=== PATIENT | female | born 2000 | race Caucasian/White ===

== ENCOUNTER 2025-01-24 20:29 | Emergency (ER) | payer OTHER, SELFPAY ==
[2025-01-24 21:00] VITALS: BP 109/61; PULSE 87; RESP 18; TEMP 36.4; O2SAT 100; BMI 38.1
--- NOTE | 2025-01-24 21:01 | ED.GENADULT ---
HPI - General Adult General Chief complaint: Fall Stated complaint: head injury from fall; Time Seen by Provider: 01/25/25 00:43 Source: patient, RN notes reviewed and old records reviewed Mode of arrival: ambulatory Limitations: no limitations History of Present Illness ED Provider: Rock HICKS narrative: 24-year-old female presents for evaluation after slipping and hitting her head. Patient reports that she was getting herself into the shower she reports slipping on 1 of her children's toys and struck the right side of her head on the side of the tub she believes she lost consciousness for several minutes before her found her on the ground she complains of a dull right-sided headache but no other complaints pain She denies any neck pain, chest pain, abdominal pain, nausea vomiting. The patient reports that she was about 10 weeks followed by [facility] she was and reports that she had a confirmatory ultrasound 3 days ago with a heart rate 170bpm Related Data Allergies Allergy/AdvReac Type Severity Reaction Status Date / Time No Known Allergies Allergy Verified 01/24/25 21:02 Review of Systems Constitutional: Constitutional: Denies body ache(s), Denies chills, Denies fever(s), Denies frequent falls and Reports headache(s) Eyes: Eyes: Denies blurry vision ENT: Denies dysphagia, Denies vertigo, Denies dizziness and Reports headache(s) Cardiovascular: Cardiovascular: Denies chest pain, Denies chest pain at rest, Reports syncope and Denies dyspnea Respiratory: Respiratory: Denies cough and Denies dyspnea Gastrointestinal: Gastrointestinal: Denies abdominal pain, Denies dysphagia, Denies nausea and Denies vomiting Genitourinary: Genitourinary: Denies hematuria Musculoskeletal: Musculoskeletal: Denies back pain Integumentary/Breasts: Skin/Breast: Denies rash Neurologic: Denies vertigo, Denies dizziness, Reports syncope, Denies frequent falls and Reports headache(s) Psychiatric: Psychiatric: Denies anxiety PMF Social History Social History Advance Directives: No Advance Directives Information Provided: No Physical Exam ED Vital Signs: Vital Signs - 24 hr 01/24/25 21:00 01/24/25 22:54 01/25/25 00:33 Temperature 97.6 F 98.2 F 97.8 F Pulse Rate 87 68 75 Respiratory Rate 18 18 16 Blood Pressure 109/61 91/48 L 95/56 L Pulse Oximetry 100 99 99 Oxygen Delivery Method Room Air Room Air Room Air 01/25/25 02:21 Temperature 98.2 F Pulse Rate 76 Respiratory Rate 16 Blood Pressure 104/55 L Pulse Oximetry 100 Oxygen Delivery Method Room Air BMI result Body Mass Index 38.1 Const General: healthy appearing, comfortable, no acute distress, alert and awake Nutritional Appearance: well nourished Orientation/consciousness: patient oriented x3 HENMT Other: small cutaneous hematoma to the right temporal region. No open wounds or lacerations, no other evidence of facial trauma. Periorbital region without ecchymosis, no step-offs or deformities, no tenderness. No tenderness over the maxillary region or zygomatic arch on right Ears: TM's normal bilaterally and EAC's normal Throat: Yes posterior oropharynx normal Eyes Eyelids: Yes eyelids normal Conjunctivae: conjunctivae normal Sclerae: sclerae normal Corneas: corneas normal Pupils: Equal, round and reactive pupils present EOM: EOMs intact bilaterally Neck Neck: Yes full ROM Resp Effort & Inspection: normal respiratory effort, able to speak in complete sentences, no audible wheezes and not labored Auscultation: clear to auscultation bilaterally Cardio Rate: regular rate Rhythm: regular rhythm GI Inspection: No distended Palpation (GI): Soft to palpation, not firm, nontender, no guarding and not rigid Back/Spine/Pelvis Other: no C-spine tenderness Skin General skin exam: elasticity normal Neuro General: patient oriented x3 Cranial nerves: Yes CN's II-XII intact bilaterally, Yes Equal, round and reactive pupils present and Yes Bilaterally intact EOM present Cognition (Neuro): normal cognition Extrem Other: Moving all extremities well without any obvious deformities Course Course Course Narrative: RME performed by Suzette Lombardo PA-C. Patient is a 24 year old assigned female at presenting to the emergency department with right sided head pain and abdominal pain after a fall. Patient states she was showering when she slipped on a toy and hit her head and abdomen. Patient states that she is currently . Detailed physical exam and review of systems are deferred to the director title. Patient placed back in the waiting room pending room availability. Reevaluation(s) Reevaluation #1: I discussed with Dr Garcia at [facility] given the patient follows with them and is currently . he recommends no additional testing. Since we medically clear the patient from the head injury standpoint, he sees no further workup indicated for the as the patient has no abdominal pain, vaginal bleeding or discharge, and the heart tones were 170 beats per minute Time: 02:58 Medical Decision Making Medical Decision Making [facility] Narrative: 24-year-old female presents for evaluation after falling and striking her head. She reports a loss of consciousness and reports that she was about 10 weeks , . the patient reports a loss of consciousness, and therefore per [place] CT head rules, the patient does not require CT scan of the head as she rules out for all other criteria. She was neurologically intact, GCS of 15, she has no focal neurologic deficits. No open wounds, no seizure after the incident. The patient has no abdominal pain, no vaginal bleeding or discharge, a bedside ultrasound was performed showing a heart rate of 168 beats per minute. Differential Diagnosis Differential Diagnoses: The differential diagnosis associated with the presentation includes Head injury Syncope TBI less likely Lab Data [facility] Lab Attestation statement: I reviewed the patient's lab results. no leukocytosis, the patient has a mild anemia, no significant electrolyte abnormalities warranting intervention. the patient's carbon dioxide level was low at 17 and I suspect this is due to her anxiety and hyperventilating 01/25/25 01:53 01/25/25 01:53 Labs: Lab Results 01/25/25 Range/Units 01:53 WBC 8.6 (4.8-10.8) X10*3/uL RBC 3.96 L (4.20-5.50) X10*6/uL Hgb 11.4 L (12.0-16.0) g/dl Hct 31.7 L (37.0-47.0) % MCV 80.1 (80.0-98.0) fL MCH 28.8 (27.0-33.0) pg MCHC 36.0 H (31.0-35.0) g/dl RDW 12.8 (11.0-16.0) % Plt Count 233 (160-400) X10*3/uL MPV 10.8 (9.4-12.3) fL Immature Gran % (Auto) 0.4 (0.0-0.4) % Neut % (Auto) 64.6 (45-73) % Lymph % (Auto) 28.2 (20-40) % [place] % (Auto) 4.7 (2-11) % Eos % (Auto) 1.9 (0-4) % Baso % (Auto) 0.2 (0-2) % Lymph # (Auto) 2.4 (1.2-4.9) X10*3/uL [place] # (Auto) 0.4 (0.1-1.2) X10*3/uL Eos # (Auto) 0.2 (0.0-0.4) X10*3/uL Baso # (Auto) 0.0 (0.0-0.2) X10*3/uL Abs Immat Gran (auto) 0.03 (0.00-0.03) X10*3/uL Absolute Neuts (auto) 5.5 (2.0-8.3) x10*3/uL Absolute Nucleated RBC 0.000 (0.0-0.012) X10*3/uL Nucleated RBC % (auto) 0.0 (0.0-0.2) /100WBC Sodium 136 (135-145) mmol/L Potassium 3.3 (3.3-5.1) mmol/L Chloride 109 H (96-108) mmol/L Carbon Dioxide 17 L (22-29) mmol/L Anion Gap 13 (12-20) BUN 5 L (9-16) mg/dL Creatinine 0.60 (0.5-1.4) mg/dL Estim Creat Clear Calc 150.1 Estimated GFR > 60 Random Glucose 104 (60-115) mg/dL Calcium 8.9 (8.4-10.2) mg/dL Total Bilirubin 0.4 (0.0-1.0) mg/dL AST 12 (5-31) U/L ALT 16 (0-31) U/L Alkaline Phosphatase 76 (39-117) U/L Troponin I High Sens < 2.7 (<3.5-17.0) ng/L Total Protein 6.8 (6.5-8.0) g/dL Albumin 3.6 (3.5-5.0) g/dL Lipase 11 (8-78) U/L Beta HCG, Quant [id number] mIU/mL Urine Color Yellow Urine Appearance Clear Urine pH 6.5 (5.0-9.0) Ur Specific Phelps 1.015 (1.005-1.025) Urine Protein Negative (Neg-Trace) mg/dL Urine Glucose (UA) Negative (Negative) mg/dL Urine Ketones Trace (Negative) mg/dL Urine Blood Negative (Negative) Urine Nitrite Negative (Negative) Ur Leukocyte Esterase Negative (Negative) Urine RBC 0-2 (0-2) /HPF Urine WBC 0-5 (0-5) /HPF Ur Squamous Epith Cells 0-2 (0-2) /HPF Urine Bacteria None Seen (None Seen) Hyaline Casts 0-2 (0-2) /LPF Blood Type AB Positive Discharge Plan Discharge Clinical Impression: , Minor closed head injury Patient Disposition: Home, Self-Care Instructions: Head Injury (ED), (ED) Additional Instructions: your workup in the ER today was reassuring. You may use Tylenol for any further headaches or pain. Your heart rate today was 170 which is within the normal range. Follow-up with [facility], return for new or worsening symptoms, especially if you develop severe abdominal pain, vaginal bleeding or discharge Print Language: Pashto
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
--- OUTSIDE RECORDS SUMMARY | 2025-01-24 21:51 | XMS_ITS | Encounter Summary ---
Author Organization [facility] Address [address] [place] [id number] Phone Care Team Providers Care Mobile Product Manager Name Role Phone Yajaira King MD Primary Care Provider [phone] Reason for Visit * Reason Comments Med Refill Encounter Details Date Type Department Care Team (Late st Contact Info) Description 07/08/2020 Refill [facility] [place] [address] [place], [place] [id number] Carol Hammonds MD Anxiety and depression Social History Tobacco Use Types Packs/Day Years Used Date Smoking Tobacco: Never Assessed Hunger/Food Answer Date Recorded No 08/22/2019 Stable Housing Answer Date Recorded No 10/24/2019 Transportation Concerns Answer Date Rec orded No 08/22/2019 Hazards in Home Answer Date Recorded No 08/22/2019 Financing Utilities Answer Date Recorde d No 08/22/2019 Safety at Home Answer Date Recorded No 08/22/2019 Outside Support Answer Date Recorded No 08/22/2019 Understanding Health Concerns Answer Da te Recorded No 08/22/2019 Financing Health Concerns Answer Date R ecorded No 08/22/2019 Missing School or Work Answer Date Yuri rded No 08/22/2019 Comments Unknown Sex and Gender Information Value Date Recorded Sex Assigned at Female 10/08/2024 4:17 PM EST Legal Sex Female 3:11 PM EDT Gender Identity Female 06/25/2020 10:36 AM EDT Sexual Orientation Unable to collect 10/08/2024 4:17 PM EST documented as of this encounter Plan of Treatment Not on file documented as of this encounter Visit Diagnoses Diagnosis Anxiety and depression documented in this encounter Care Teams Mobile Product Manager Relationship Specialty Start Date End Date Yajaira King MD [address] [place] [address] [address] [place] [address] PCP - General Pediatrics 12/23/22 documented as of this encounter
--- OUTSIDE RECORDS SUMMARY | 2025-01-24 21:51 | XMS_ITS | Encounter Summary ---
Author Organization [facility] Address [address] [place] [id number] Phone Care Team Providers Care Mail Distribution Clerk Name Role Phone Yajaira King MD Primary Care Provider [phone] Encounter Details Date Type Department Care Team (Late st Contact Info) Description 05/31/2017 Conversion Encounter [facility] - [address], [address] [place] [address] Cici Smith NP [address] [place] [address] Social History Tobacco Use Types Packs/Day Years Used Date Smoking Tobacco: Never Assessed Comments Unknown Sex and Gender Information Value Date Recorded Sex Assigned at Female 10/08/2024 4:17 PM EST Legal Sex Female 3:11 PM EDT Gender Identity Female 06/25/2020 10:36 AM EDT Sexual Orientation Unable to collect 10/08/2024 4:17 PM EST documented as of this encounter Plan of Treatment Not on file documented as of this encounter Visit Diagnoses Not on filedocumented in this encounter Care Teams Mail Distribution Clerk Relationship Specialty Start Date End Date Yajaira King MD [address] [facility] [address] [place] [address] PCP - General Pediatrics 12/23/22 documented as of this encounter
[2025-01-24 22:54] VITALS: BP 91/48; PULSE 68; RESP 18; TEMP 36.8; O2SAT 99
--- NOTE | 2025-01-25 00:22 | PC.NURSE ---
Pt is a pleasant 24 y/o female who presents for evaluation s/p fall at home in the bathroom. Pt reports hitting her head on the tub and experiencing a + LOC, found by after the fall. Pt has a hematoma over her right temporal area. Pt c/o generalized, body-wide discomfort and nausea. Denies numbness/tingling in extremities. CSMs are intact and moving all extremities as anticipated. Pt reports a brief disturbance with her vision initially after fall, now self-resolved. Denies any chest pain, abd pain, and shortness of breath. No vomiting, no dizziness.
[2025-01-25 00:33] VITALS: BP 95/56; PULSE 75; RESP 16; TEMP 36.6; O2SAT 99
--- NOTE | 2025-01-25 00:53 | ECG_ITS ---
Test Reason : syncope Blood Pressure : */* mmHG Vent. Rate : 76 BPM Atrial Rate : 76 BPM P-R Int : 154 ms QRS Dur : 84 ms QT Int : 386 ms P-R-T Axes : 23 33 9 degrees QTcB Int : 434 ms Normal sinus rhythm Normal ECG No previous ECGs available Referred By: Rahul Wilkerson Electronically Signed By: THEA BONILLA
[2025-01-25 02:02] LABS: Basophils Percent Auto 0.2 % (0-2); Eosinophils Absolute Auto 0.2 X10*3/uL (0.0-0.4); Eosinophils Percent Auto 1.9 % (0-4); Hematocrit 31.7 % (37.0-47.0); Hemoglobin 11.4 g/dl (12.0-16.0); Imm Gran Abs Auto 0.03 X10*3/uL (0.00-0.03); Imm Gran Pct Auto 0.4 % (0.0-0.4); Lymphocytes Absolute Auto 2.4 X10*3/uL (1.2-4.9); Lymphocytes Percent Auto 28.2 % (20-40); MANUAL DIFF FLAG NO; Mean Corpuscular Hemoglobin 28.8 pg (27.0-33.0); Mean Corpuscular Volume 80.1 fL (80.0-98.0); Mean Platelet Volume 10.8 fL (9.4-12.3); Monocytes Absolute Auto 0.4 X10*3/uL (0.1-1.2); Monocytes Percent Auto 4.7 % (2-11); Neutrophils Absolute Auto 5.5 x10*3/uL (2.0-8.3); Neutrophils Percent Auto 64.6 % (45-73); Platelet Count 233 X10*3/uL (160-400); Red Blood Count 3.96 X10*6/uL (4.20-5.50); Red Cell Distribution Width 12.8 % (11.0-16.0); White Blood Count 8.6 X10*3/uL (4.8-10.8)
[2025-01-25 02:04] LABS: Appearance Urine Clear; Color Urine Yellow; Glucose Urine UA Negative (Negative); Leukocyte Esterase Urine Negative (Negative); Nitrite Urine Negative (Negative); PH 6.5 (5.0-9.0); Specific Gravity - Urine 1.015 (1.005-1.025); Urine Blood Negative (Negative); Urine Ketones Trace mg/dL (Negative); Urine Protein Negative (Neg-Trace)
[2025-01-25 02:06] LABS: Bacteria Urine None Seen (None Seen); Hyaline Casts Urine 0-2 /LPF (0-2); RBC Urine 0-2 /HPF (0-2); Squamous Epithelial Cell Urine 0-2 /HPF (0-2); WBC Urine 0-5 /HPF (0-5)
[2025-01-25 02:21] VITALS: BP 104/55; PULSE 76; RESP 16; TEMP 36.8; O2SAT 100
[2025-01-25 02:22] LABS: Alanine Aminotransferase 16 U/L (0-31); Albumin Level 3.6 g/dL (3.5-5.0); Anion Gap 13 (12-20); Aspartate Amino Transferase 12 U/L (5-31); Bilirubin Total 0.4 mg/dL (0.0-1.0); Blood Urea Nitrogen 5 mg/dL (9-16); Calcium 8.9 mg/dL (8.4-10.2); Carbon Dioxide 17 mmol/L (22-29); Chloride 109 mmol/L (96-108); Creatinine Clr Calc Pharmacy 150.1; Estimated Glomerular Filt Rate > 60; Glucose Random 104 mg/dL (60-115); Lipase 11 U/L (8-78); Potassium 3.3 mmol/L (3.3-5.1); Sodium 136 mmol/L (135-145); Total Protein 6.8 g/dL (6.5-8.0)
[2025-01-25 02:29] LABS: Troponin-I High Sensitivity < 2.7 ng/L (<3.5-17.0)
[2025-01-25 02:38] LABS: Alkaline Phosphatase 76 U/L (39-117)
[2025-01-25 02:46] LABS: HCG Quantitative 104831 mIU/mL
[2025-01-25 03:07] VITALS: BP 104/55; PULSE 76; RESP 16; TEMP 36.8; O2SAT 100
== END 2025-01-25 03:10 | disposition home or self-care (01) ==
PROVIDERS: Physician Assistant; Emergency Provider Emergency Medicine
DX: O9A.211 Injury, poisoning and certain other consequences of external causes complicating pregnancy, first trimester (principal); R55 Syncope and collapse; S09.90XA Unspecified injury of head, initial encounter; W18.2XXA Fall in (into) shower or empty bathtub, initial encounter; Y93.E1 Activity, personal bathing and showering; Y92.002 Bathroom of unspecified non-institutional (private) residence as the place of occurrence of the external cause; Y99.8 Other external cause status; Z79.899 Other long term (current) drug therapy
CPT/HCPCS: 36415; 80053; 81001; 83690; 84484; 84702; 85025; 86900; 86901; 93005; 99283; 99284

== ENCOUNTER → 2025-01-25 00:53 | Outpatient (BNV) | payer OTHER, SELFPAY | PROVIDERS: Emergency Provider Emergency Medicine; Visit Provider Internal Medicine | DX: R55 Syncope and collapse (principal) | CPT/HCPCS: 93010 ==